=== PATIENT | female | born 1980 | race Caucasian/White ===

== ENCOUNTER 2019-05-11 21:35 | Emergency (ER) | payer OTHER ==
[~2019-05-11] VITALS: Ht 160 cm; Wt 74.9 kg
[2019-05-11] MEDS ORDERED: VALS160T2 PO (21:43)
[2019-05-11] MEDS ORDERED: CEFU1TAB22 PO (21:43)
[2019-05-11] MEDS ORDERED: PRED20TA PO (23:38)
[2019-05-11] MEDS ORDERED: predniSONE 20 MG TAB PO ONE (23:45)
[2019-05-11 23:46] VITALS: BP 150/80
== END 2019-05-11 23:53 | disposition home or self-care (01) ==
LOC: M ED 21:35
DX: T78.40XA Allergy, unspecified, initial encounter (principal); I10 Essential (primary) hypertension; Z79.899 Other long term (current) drug therapy; Z79.2 Long term (current) use of antibiotics; Z88.0 Allergy status to penicillin; Z82.5 Family history of asthma and other chronic lower respiratory diseases

== ENCOUNTER → 2019-11-01 | Outpatient (CLI) | payer OTHER ==
[~2019-11-01] MED LIST: CEFU1TAB22 PO; PRED20TA PO; VALS160T2 PO
[2019-12-02 08:14] LABS: HEMATOCRIT 43.6 % (36.0-47.0); HEMOGLOBIN 14.1 g/dl (12.0-15.5); MEAN CORPUSCULAR HEMOGLOBIN 28.4 pg (27.0-33.0); MEAN CORPUSCULAR HGB CONC 32.3 g/dl (32.0-36.5); MEAN CORPUSCULAR VOLUME 87.9 fl (80.0-96.0); PLATELET COUNT, AUTOMATED 309 10^3/uL (150-450); RED BLOOD COUNT 4.96 10^6/uL (4.00-5.40); WHITE BLOOD COUNT 7.9 10^3/uL (4.0-10.0)
[2019-12-29 22:15] LABS: ALBUMIN 3.4 GM/DL (3.2-5.2); ALT/SGPT 18 U/L (12-78); BILIRUBIN,TOTAL 0.3 MG/DL (0.2-1.0); BLOOD UREA NITROGEN 10 MG/DL (7-18); CARBON DIOXIDE LEVEL 27 MEQ/L (21-32); CHLORIDE LEVEL 108 MEQ/L (98-107); CREATININE FOR GFR 0.71 MG/DL (0.55-1.30); GLOMERULAR FILTRATION RATE > 60.0 (>58); GLUCOSE, FASTING 79 MG/DL (70-100); POTASSIUM SERUM 3.9 MEQ/L (3.5-5.1); SODIUM LEVEL 141 MEQ/L (136-145); TOTAL PROTEIN 7.3 GM/DL (6.4-8.2)
== END ==
LOC: M LAB 08:07
PROVIDERS: ATTEND Family Medicine
DX: I10 Essential (primary) hypertension (principal)

== ENCOUNTER 2020-02-27 21:49 | Emergency (ER) | payer OTHER, SELFPAY ==
[~2020-02-27] VITALS: Ht 160 cm; Wt 76.1 kg
[2020-02-27] MEDS ORDERED: KETOROLAC 30 MG/ML 1ML VIAL IV ONE (22:15)
[2020-02-27] MEDS ORDERED: ONDANSETRON 4MG/2ML VIAL IV ONE ×2 (22:15→23:00)
[2020-02-27 22:43] LABS: BASO # 0.1 10^3/uL (0.0-0.2); BASO % 0.9 % (0.0-1.0); EOS # 0.4 10^3/uL (0.0-0.5); EOS % 4.2 % (0.0-3.0); HEMATOCRIT 37.4 % (36.0-47.0); HEMOGLOBIN 12.1 g/dl (12.0-15.5); LYMPH # 2.7 10^3/uL (1.5-5.0); LYMPH % 29.6 % (24.0-44.0); MEAN CORPUSCULAR HEMOGLOBIN 27.5 pg (27.0-33.0); MEAN CORPUSCULAR HGB CONC 32.4 g/dl (32.0-36.5); MONO # 0.6 10^3/uL (0.0-0.8); MONO % 6.3 % (0.0-5.0); NEUTROPHILS # 5.3 10^3/uL (1.5-8.5); NEUTROPHILS % 58.7 % (36.0-66.0); PLATELET COUNT, AUTOMATED 322 10^3/uL (150-450); WHITE BLOOD COUNT 9.1 10^3/uL (4.0-10.0)
[2020-02-27 23:08] LABS: ALBUMIN 3.1 GM/DL (3.2-5.2); ALT/SGPT 14 U/L (12-78); BILIRUBIN,DIRECT < 0.1 MG/DL (0.0-0.2); BILIRUBIN,TOTAL 0.2 MG/DL (0.2-1.0); BLOOD UREA NITROGEN 10 MG/DL (7-18); CALCIUM LEVEL 8.3 MG/DL (8.5-10.1); CARBON DIOXIDE LEVEL 28 MEQ/L (21-32); CHLORIDE LEVEL 105 MEQ/L (98-107); CREATININE FOR GFR 0.66 MG/DL (0.55-1.30); GLOMERULAR FILTRATION RATE > 60.0 (>58); GLUCOSE, FASTING 93 MG/DL (70-100); LIPASE 150 U/L (73-393); POTASSIUM SERUM 3.6 MEQ/L (3.5-5.1); SODIUM LEVEL 140 MEQ/L (136-145); TOTAL PROTEIN 6.5 GM/DL (6.4-8.2)
--- NOTE | 2020-02-27 23:28 | REPVR ---
PROCEDURE INFORMATION: Exam: CT Abdomen And Pelvis Without Contrast Exam date and time: 02/27/2020 11:05 PM Age: 39 years old Clinical indication: Abdominal pain; Flank; Left; Additional info: Left flank pain TECHNIQUE: Imaging protocol: Computed tomography of the abdomen and pelvis without contrast. Radiation optimization: All CT scans at this facility use at least one of these dose optimization techniques: automated exposure control; mA and/or kV adjustment per patient size (includes targeted exams where dose is matched to clinical indication); or iterative reconstruction. COMPARISON: CT ABD PELVIS WITH CONTRAST 12/28/2014 8:45 PM FINDINGS: Lungs: The imaged portions of the lung bases are clear. The lungs were not fully imaged. Heart: No cardiomegaly or pericardial effusion. Diaphragm: Intact. Liver: No liver lesion is seen. The contour of the liver is smooth. The liver is enlarged and in craniocaudal dimension and at the level of the right midclavicular line, the liver measures 16.9 cm. Incidental note is made of focal fatty infiltration of the liver adjacent to the falciform ligament. Gallbladder and bile ducts: No calcified gallstones are noted. No gallbladder wall thickening, pericholecystic fluid, or pericholecystic inflammatory changes are identified. No dilation of the bile ducts is noted. No calcified stones are seen in the common bile duct. Pancreas: Unremarkable. No dilation of the main pancreatic duct is noted. There is no inflammatory fat stranding around the pancreas to suggest acute pancreatitis. Spleen: Unremarkable. No splenomegaly is noted. Adrenal glands: Normal. No adrenal mass is noted. Kidneys and ureters: There is a 4 mm calculus in the left proximal ureter and mild left hydroureteronephrosis. No stones are noted in the kidney or right ureter. No renal lesion is identified. Stomach and bowel: There is sigmoid diverticulosis without evidence for diverticulitis. There is no evidence for a bowel obstruction, colitis, pneumatosis intestinalis, intussusception, volvulus, or perforated viscus. There is a mild amount of formed stool in the colon. Appendix: There is no evidence for appendicitis. Intraperitoneal space: No free air. No ascites. No asbcess. Retroperitoneal space: No fluid collection. No mass. Vasculature: The abdominal aorta is normal in caliber. Lymph nodes: No enlarged lymph nodes. Urinary bladder: The partially distended urinary bladder is unremarkable. No stones or masses are seen in the bladder. Reproductive: There is a 2 cm dominant follicular cyst in the left ovary, for which imaging follow-up is not recommended. The uterus is anteverted.The stomach and small bowel are unremarkable. Bones/joints: There is no fracture or dislocation. No suspicious osteolytic or osteoblastic lesion. Soft tissues: There is a moderate size fat containing periumbilical hernia that is similar in appearance compared to the prior CT abdomen and pelvis on 12/28/2014. There is scarring of the anterior abdominal wall overlying the right lower quadrant of the abdomen. IMPRESSION: 1. 4 mm calculus in the left proximal ureter and mild left hydroureteronephrosis. 2. Moderate size fat containing periumbilical hernia that is similar in appearance compared to the prior CT abdomen and pelvis on 12/28/2014. 3. Sigmoid diverticulosis without evidence for diverticulitis. 4. Hepatomegaly. Electronically signed by: Dat Flaherty On 02/27/2020 23:28:46 PM
[2020-02-27] MEDS ORDERED: KETO10TAB PO (23:45)
[2020-02-27] MEDS ORDERED: FLOM0.4C39 PO (23:45)
[2020-02-27] MEDS ORDERED: TAMSULOSIN 0.4 MG CAP PO ONE (23:45)
[2020-02-28 00:30] VITALS: BP 131/85
== END 2020-02-28 00:31 | disposition home or self-care (01) ==
LOC: M ED 21:49
DX: N20.1 Calculus of ureter (principal); N13.39 Other hydronephrosis; Z87.442 Personal history of urinary calculi; I10 Essential (primary) hypertension; Z88.0 Allergy status to penicillin; Z79.899 Other long term (current) drug therapy
CPT/HCPCS: 74176; 80048; 80076; 81001; 83690; 85025; 96374; 96375; 99284; J1885; J2405

== ENCOUNTER 2020-04-16 13:22 | Emergency (ER) | payer SELFPAY ==
[~2020-04-16] VITALS: Ht 160 cm; Wt 73.3 kg
[~2020-04-16 13:22] MED LIST changes: +FLOM0.4C39 PO; +KETO10TAB PO
[2020-04-16] MEDS ORDERED: TRI-TAB PO (13:38)
[2020-04-16] MEDS ORDERED: MUCI600T31 PO (14:36)
[2020-04-16] MEDS ORDERED: BENZ200C70 PO (14:36)
[2020-04-16 15:39] VITALS: BP 139/87
[2020-04-16 17:14] LABS: RSV AMPLIFICATION NEGATIVE (NEGATIVE)
== END 2020-04-16 15:44 | disposition home or self-care (01) ==
LOC: M ED 13:22
DX: J06.9 Acute upper respiratory infection, unspecified (principal); B34.9 Viral infection, unspecified; I10 Essential (primary) hypertension; Z79.899 Other long term (current) drug therapy; Z79.3 Long term (current) use of hormonal contraceptives; Z88.0 Allergy status to penicillin

== ENCOUNTER → 2021-09-26 | Outpatient (CLI) | payer BC ==
[~2021-09-26] MED LIST changes: +BENZ200C70 PO; +MUCI600T31 PO; +TRI-TAB PO
== END ==
LOC: M RAD 11:52
PROVIDERS: ATTEND Otolaryngology
DX: J32.9 Chronic sinusitis, unspecified (principal)